=== PATIENT | male | born 1980 | race African-American/Black ===

== ENCOUNTER 2017-10-16 17:47 | Emergency (ER) | payer MEDICAID, OTHER ==
[~2017-10-16] VITALS: Ht 188 cm; Wt 105.0 kg
[~2017-10-16 17:47] MED LIST: DILA100C PO
[2017-10-16 18:22] VITALS: BP 168/69; PULSE 65; RESP 17; TEMP 98.3; O2SAT 100
[2017-10-16] MEDS ORDERED: IBUP1TAB7 PO (20:40)
[2017-10-16] MEDS ORDERED: BACT800T5 PO (20:40)
[2017-10-16] MEDS ORDERED: SULFAMETHOXAZOLE-TRIMETHOPRIM DS 800-160 MG TAB PO ONE (20:45)
--- NOTE | 2017-10-16 20:48 | PD ---
HPI Chief Complaint: Skin Problem Time Seen by Provider: 20:24 Travel History International Travel<30 days: No Contact w/Intl Traveler<30days: No Traveled to known affect area: No History of Present Illness HPI 37-year-old right-hand dominant black male presents emergency department we will complains of swelling to the tip of his right ring finger. The patient states that this is been going on for the last several days. He states that he may have poked the tip of his finger possibly. He states the pain is moderate. Worse with palpation. No alleviating factors. He is up-to-date with immunizations. No fever chills. No drainage. PFSH Past Medical History Cardiovascular Problems: Yes Diminished Hearing: No Gastrointestinal Disorders: Yes (STOMACH UPSET FREQUENTLY) Musculoskeletal: Yes (ANKLE) Immunizations Current: Yes Seizures: Yes Tetanus Vaccination: < 5 Years Past Surgical History Cholecystectomy: Yes Other Surgery: Yes Social History Alcohol Use: Yes (OCCAS) Tobacco Use: Yes Substance Use: Yes (marijuana) Allergies-Medications (Allergen,Severity, Reaction): Coded Allergies: No Known Allergies (Verified Adverse Reaction, Unknown, 10/16/17) Reported Meds & Prescriptions Reported Meds & Active Scripts Active Ibuprofen 800 Mg Tab 800 Mg PO Q8H PRN 7 Days Bactrim DS (Sulfamethoxazole-Trimethoprim) 800-160 Mg Tab 1 Tab PO BID Review of Systems General / Constitutional: No: Fever Eyes: No: Visual changes HENT: No: Headaches Cardiovascular: No: Chest Pain or Discomfort Respiratory: No: Shortness of Breath Gastrointestinal: No: Abdominal Pain Genitourinary: No: Dysuria Musculoskeletal: Positive: Edema, Pain, No: Arthralgias, Limited ROM Skin: No Rash Neurologic: No: Weakness Psychiatric: No: Depression Endocrine: No: Polydipsia Hematologic/Lymphatic: No: Easy Bruising Physical Exam Narrative GENERAL: This is a well-nourished, well-developed patient, in no apparent distress. SKIN: Patient has tenderness and swelling to the radial aspect of the right ring finger distal phalanx around the nail bed. This is consistent with a paronychia HEAD: Atraumatic. Normocephalic. EYES: PERRL, EOMI, no discharge or injection. No scleral icterus. EARS: Clear NOSE: Nasal turbinates appear normal. THROAT: Mucosa pink and moist. Airway patent. NECK: Trachea midline. supple, moves head freely. LUNGS: Clear to auscultation. CV: Regular in rhythm. ABDOMEN: Soft nontender. EXT: No clubbing cyanosis or edema. Data Data Last Documented VS Vital Signs Date Time Temp Pulse Resp B/P (MAP) Pulse Ox O2 Delivery O2 Flow Rate FiO2 10/16/17 18:22 98.3 65 17 168/69 (102) 100 Orders Orders Sulfamet-Trimeth Ds 800-160 Mg (Bactrim (10/16/17 20:45) MDM Medical Decision Making Medical Screen Exam Complete: Yes Emergency Medical Condition: Yes Medical Record Reviewed: Yes Differential Diagnosis MDM: High Differential diagnoses: Abscess, folliculitis, cellulitis, lymphangitis, abrasion, contact dermatitis, paronychia Narrative Course An incision and drainage of the right ring finger paronychia has been performed Procedures Procedure Narrative Right ring finger paronychia incision and drainage: The fingers were prepped with Hibiclens. The patient is given a digital block with 1% lidocaine. After adequate anesthesia an 11 blade scalpel was used to make a incision at the distal tip of the finger with expression of pus. The wound is cleansed and dressings applied. Patient tolerates procedure well. No complications. Diagnosis Primary Impression: Right ring finger paronychia Patient Instructions: General Instructions Additional Instructions: Rest. Elevation. keep clean and dry. Soak in Epsom salts 3 times daily. Medications as directed. Daily wound care with soap, water and Neosporin. Medications as directed Follow-up with a primary care doctor in one week. Return to the ER for any problems. Med/Other Pt SpecificInfo: Prescription(s) given Scripts Ibuprofen (Ibuprofen) 800 Mg Tab 800 MG PO Q8H Y for PAIN GREATER THAN 6 for 7 Days, #21 TAB 0 Refills Prov: Herminia Gomez MD 10/16/17 Sulfamethoxazole-Trimethoprim (Bactrim DS) 800-160 Mg Tab 1 TAB PO BID for Infection, #20 TAB 0 Refills Prov: Herminia Gomez MD 10/16/17 Disposition: 01 DISCHARGE HOME Condition: Stable Ganesh Fish Oct 16, 2017 20:48
== END 2017-10-16 21:24 | disposition home or self-care (01) ==
LOC: NEPD 17:47
DX: L03.011 Cellulitis of right finger (principal); F12.90 Cannabis use, unspecified, uncomplicated; Z86.69 Personal history of other diseases of the nervous system and sense organs; Z72.0 Tobacco use
CPT/HCPCS: 26010